=== PATIENT | female | born 1995 | race Two or more races ===

== ENCOUNTER 2024-01-26 18:02 | Emergency (ER) | payer OTHER, SELFPAY ==
[2024-01-26 18:07] VITALS: BP 108/80
--- NOTE | 2024-01-26 18:32 | ED.SKININJ ---
HPI-Injury
General
Chief Complaint: Skin Surface Trauma
Source: patient
Exam Limitations: none
Time Seen by Provider: 01/26/24 18:09
Nursing documentation reviewed up to this point in time: agreed with
History of Present Illness-Injury
Is this injury a work related problem?: No
Is pt an associate of [facility]/[place]?: No
Initial Injury comments:
Accidentally cut thumb with scissors. Incident occurred just [employer]
Past History
Past History
ED Past Medical History: None
Review of Systems
Review of Systems
Allergies reviewed?: Yes
All Other Systems: ROS reviewed and negative except as documented in HPI and ROS
Constitutional: Reports no symptoms
Musculoskeletal: Reports no symptoms
Skin: Reports other (Laceration dorsum of right thumb)
Neurological: Reports no symptoms
Psychiatric: Reports no symptoms
Skin Exam
Laceration
Right Dorsal Thumb:
Length in cm: 1.5
Orientation: diagonal
Type of Laceration: simple
Any active bleeding?: no active bleeding
Distal skin color and temperature: normal-warm & good color
Normal distal neurovascular exam: Yes
Range of motion: full
Phy Exam
General Physical Exam
General Presentation: well appearing and no apparent distress
General age: appears stated age
General Skin: warm and dry
General Habitus: normal
Musculoskeletal Exam
Musculoskeletal Exam: full ROM and neuro vasc intact
Skin Exam
Skin Exam: normal color, warm/dry and no rash
Psychiatric Exam
Psychiatric Exam: normal mood/affect
Course
Vital Signs
Initial and Last Documented VS:
Initial Vital Signs
Temp Pulse Resp BP Pulse Ox
98.2 F 74 18 108/80 98
01/26/24 18:07 01/26/24 18:07 01/26/24 18:07 01/26/24 18:07 01/26/24 18:07
Last Documented Vital Signs
Temp Pulse Resp BP Pulse Ox
98.2 F 74 18 108/80 98
01/26/24 18:07 01/26/24 18:07 01/26/24 18:07 01/26/24 18:07 01/26/24 18:07
Procedures
Laceration Closure
Right Dorsal Thumb:
Status of Wound: clean
Description of Wound Edges: sharp
Preparation: cleaned with saline and cleaned with Betadine
Anesthesia: 1% Lidocaine
Revision/Debridement: routine- no revision and irrigate-direct pressure
Wound exploration: explored to base- no FB and no tendon involvement
Type of Closure: single layer closure
Skin Closure Material: 5-0 prolene
*Critical Care Note
Total Time (30-74mins, 75-104mins- exclusive of procedures): Not Applicable
ED Attending Note
-
Portions of this chart may have been created with voice recognition software.� Occasional wrong word or��sound alike� substitutions may have occurred due to the inherent limitations of voice recognition software.
Discharge Plan
Departure
Patient Disposition: Home (Routine Discharge)
Date of Disposition: 01/26/24
Time of Disposition: 18:31
Patient with high blood pressure during this ER visit?: No
Condition: Good
Covid-19: Not Applicable
Discharge Problem:
Laceration of thumb
Instructions: Laceration Repair With Stitches (DC)
Prescriptions:
No Action
tramadol 50 mg tablet
50 mg PO Q8H PRN (Reason: Pain) Qty: 14 0RF
Activity Restrictions/Additional Instructions:
Sutures can be removed in 7-10 days by your family doctor.
Interventions
Interventions:
*Risk Screen - Suicide Last Done: 01/26/24 18:07
*Neglect/Abuse Screening Last Done: 01/26/24 18:07
Discharge Date and Time
Print Language: SURINAMESE
== END 2024-01-26 18:41 | disposition home or self-care (01) ==
LOC: EMR 18:02
PROVIDERS: EMERGENCY PHYSICIAN Emergency Medicine; FAMILY PHYSICIAN Nurse Practitioner Family
DX: S61.011A Laceration without foreign body of right thumb without damage to nail, initial encounter (principal); W27.2XXA Contact with scissors, initial encounter
CPT/HCPCS: 99282; 12001

== ENCOUNTER 2024-09-04 05:14 | Emergency (ER) | payer BC, SELFPAY ==
[2024-09-04 05:26] VITALS: BP 104/80
[2024-09-04 05:47] VITALS: BMI 27.7
[2024-09-04] MEDS: NSS 1000 IV (05:56)
[2024-09-04 05:58] LABS: Hematocrit 40.3 % (37.0-47.0); Hemoglobin 13.9 g/dL (12.0-16.0); Mean Corp Hgb Conc. 34.5 g/dL (33.0-37.0); Mean Corpuscular Volume 90.8 fL (81.0-99.0); Nucleated Red Blood Cells % 0 %; Platelet Count 282 10^3/uL (130-400); Red Cell Dist. Width 12.3 % (11.5-14.5)
[2024-09-04] MEDS: MORPHINE SULFATE 4 MG IV (05:58)
[2024-09-04] MEDS: ZOFRAN 4 MG IV ×2 (06:00→09:22)
--- NOTE | 2024-09-04 06:19 | ED.GENMED ---
History of Present Illness
<Carson Younger MD, Resident - Last Filed: 09/04/24 10:57>
General
Chief Complaint: Abdominal Pain
Source: patient
Exam Limitations: none
Time Seen by Provider: 09/04/24 06:11
Nursing documentation reviewed up to this point in time: agreed with
History of Present Illness
History of Present Illness:
This is a 28-year-old female with no significant past medical history, no prescription medications, presented in the emergency department with complaints of abdominal pain, nausea, vomiting and diarrhea. She reports that she was in her usual state
of health until around 11 PM last night when she noticed crampy abdominal pain which turned into a sharp 10/10 pain which continued to worsen and reportedly comes in waves and she had 2 episodes of watery stools, denies blood in stools and also 2
episodes of vomiting, denies blood in the vomit, reports it was mostly the food content that she ate at the dinner. Abdominal pain initially started in the middle however later moved to the right lower abdomen. Pain increases with any movements,
no relieving factors. Denies any fever or chills, trouble breathing, chest pain, headache, cough or weakness. Denies any recent sick contacts. Denies any recent travel. Denies any previous similar episode. Denies any surgeries on the abdomen.
Past History
<Carson Younger MD, Resident - Last Filed: 09/04/24 10:57>
Past History
ED Past Medical History: None
ED Past Surgical History: None
Patient has exhibited threatening behavior?: No
Social History
Tobacco: Non-smoker
Alcohol: Occasional
Drug: None
Family History
Family History: Other (Noncontributory)
Review of Systems
<Carson Younger MD, Resident - Last Filed: 09/04/24 10:57>
Review of Systems
Constitutional: Denies fever or chills
EENT: Denies sore throat
Respiratory: Denies cough
Cardiac: Denies chest pain
ABD/GI: Reports abdominal pain, nausea, vomiting and diarrhea; Denies bloody stools or black stools
: Denies dysuria, frequency or difficulty voiding
Musculoskeletal: Denies joint pain or muscle stiffness
Skin: Denies itching or rash
Neurological: Denies dizzy or headache
Hematologic/Lymphatic: Denies bleeding
Phy Exam
<Carson Younger MD, Resident - Last Filed: 09/04/24 10:57>
General Physical Exam
General Presentation: mild distress
General age: appears stated age
General Skin: warm
General Habitus: normal
General Mental: alert
Cardiovascular Exam
Cardiovascular Exam: regular rate/rhythm and no murmur
Pulmonary Exam
Pulmonary Exam: lungs clear, no respiratory distress and no cough
Gastrointestinal Exam
Gastrointestinal Exam: normal bowel sounds, soft, guarding, rebound and tender (Epigastric and right lower quadrant)
Musculoskeletal Exam
Musculoskeletal Exam: full ROM
Course
<Carson Younger MD, Resident - Last Filed: 09/04/24 10:57>
Orders/Labs/Results
Orders:
Orders
09/04/24 05:44
IV Insert/Care/Rem.- Treatment PRN
Test Result ONCE
09/04/24 05:50
Complete Blood Count/With Diff Urgent
Comprehensive Metabolic Panel Urgent
HCG, Serum Qualitative Screen Urgent
Comment: Notify provider if positive test present
Lipase Urgent
09/04/24 05:52
Morphine Sulfate 4 mg IV NOW STA
09/04/24 05:53
Ondansetron Injectable [Zofran] 4 mg IV NOW STA
09/04/24 05:55
0.9% Sodium Chloride 1000 ml [Nss] 1,000 ml IV BOLUS
09/04/24 06:26
Ketorolac [Toradol] 15 mg IV NOW STA
Pantoprazole [Protonix IV] 40 mg IV NOW STA
09/04/24 06:38
US Abdomen Complete/Upper Urgent
Comment:
Reason For Exam: upper abdominal pain
09/04/24 07:27
CT Abd/pel W Iv And Oral Contr Urgent
Comment:
Reason For Exam: lower adominal pain
Iohexol [Omnipaque] See Protocol PO NOW STA
09/04/24 07:43
Urinalysis Reflex To Culture Urgent
Date Specimen was Collected: 09/04/24
Time Specimen was Collected: 07:39
09/04/24 09:12
Ondansetron Injectable [Zofran] 4 mg IV NOW STA
09/04/24 09:30
Acetaminophen [Tylenol] 650 mg PO NOW STA
09/04/24 10:43
Acetaminophen [Tylenol] 650 mg PO NOW STA
Dicyclomine [Bentyl] 10 mg PO NOW STA
Abnormal Lab Results
09/04/24
05:50
WBC 13.3 H 10^3/uL
(4.8-10.8)
MCH 31.3 H pg
(27.0-31.0)
MPV 10.5 H fL
(7.4-10.4)
Absolute Neuts (auto) 11.1 H 10^3/uL
(1.4-6.5)
Absolute Lymphs (auto) 1.1 L 10^3/uL
(1.2-3.4)
Absolute Monos (auto) 0.8 H 10^3/uL
(0.1-0.6)
Neutrophils % 83.5 H %
(42.2-75.2)
Lymphocytes % 7.9 L %
(20.5-51.1)
Chloride 109 H mmol/L
(98-107)
Carbon Dioxide 21 L mmol/L
(22-30)
Glucose 123 H mg/dl
(70-99)
09/04/24 05:50
09/04/24 05:50
Vital Signs
Initial and Last Documented VS:
Initial Vital Signs
Temp Pulse Resp BP Pulse Ox
99.1 F 88 24 104/80 100
09/04/24 05:26 09/04/24 05:26 09/04/24 05:26 09/04/24 05:26 09/04/24 05:26
Last Documented Vital Signs
Temp Pulse Resp BP Pulse Ox
101.8 F H 88 24 104/80 100
09/04/24 09:26 09/04/24 05:26 09/04/24 05:26 09/04/24 05:26 09/04/24 06:21
<Michael Sullivan MD - Last Filed: 09/04/24 10:45>
Orders/Labs/Results
Orders:
Orders
09/04/24 05:44
IV Insert/Care/Rem.- Treatment PRN
Test Result ONCE
09/04/24 05:50
Complete Blood Count/With Diff Urgent
Comprehensive Metabolic Panel Urgent
HCG, Serum Qualitative Screen Urgent
Comment: Notify provider if positive test present
Lipase Urgent
09/04/24 05:52
Morphine Sulfate 4 mg IV NOW STA
09/04/24 05:53
Ondansetron Injectable [Zofran] 4 mg IV NOW STA
09/04/24 05:55
0.9% Sodium Chloride 1000 ml [Nss] 1,000 ml IV BOLUS
09/04/24 06:26
Ketorolac [Toradol] 15 mg IV NOW STA
Pantoprazole [Protonix IV] 40 mg IV NOW STA
09/04/24 06:38
US Abdomen Complete/Upper Urgent
Comment:
Reason For Exam: upper abdominal pain
09/04/24 07:27
CT Abd/pel W Iv And Oral Contr Urgent
Comment:
Reason For Exam: lower adominal pain
Iohexol [Omnipaque] See Protocol PO NOW STA
09/04/24 07:43
Urinalysis Reflex To Culture Urgent
Date Specimen was Collected: 09/04/24
Time Specimen was Collected: 07:39
09/04/24 09:12
Ondansetron Injectable [Zofran] 4 mg IV NOW STA
09/04/24 09:30
Acetaminophen [Tylenol] 650 mg PO NOW STA
09/04/24 10:43
Acetaminophen [Tylenol] 650 mg PO NOW STA
Dicyclomine [Bentyl] 10 mg PO NOW STA
Abnormal Lab Results
09/04/24
05:50
WBC 13.3 H 10^3/uL
(4.8-10.8)
MCH 31.3 H pg
(27.0-31.0)
MPV 10.5 H fL
(7.4-10.4)
Absolute Neuts (auto) 11.1 H 10^3/uL
(1.4-6.5)
Absolute Lymphs (auto) 1.1 L 10^3/uL
(1.2-3.4)
Absolute Monos (auto) 0.8 H 10^3/uL
(0.1-0.6)
Neutrophils % 83.5 H %
(42.2-75.2)
Lymphocytes % 7.9 L %
(20.5-51.1)
Chloride 109 H mmol/L
(98-107)
Carbon Dioxide 21 L mmol/L
(22-30)
Glucose 123 H mg/dl
(70-99)
09/04/24 05:50
09/04/24 05:50
Vital Signs
Initial and Last Documented VS:
Initial Vital Signs
Temp Pulse Resp BP Pulse Ox
99.1 F 88 24 104/80 100
09/04/24 05:26 09/04/24 05:26 09/04/24 05:26 09/04/24 05:26 09/04/24 05:26
Last Documented Vital Signs
Temp Pulse Resp BP Pulse Ox
101.8 F H 88 24 104/80 100
09/04/24 09:26 09/04/24 05:26 09/04/24 05:26 09/04/24 05:26 09/04/24 06:21
<Carson Younger MD, Resident - Last Filed: 09/04/24 10:57>
MDM/Problems Addressed
Differential Diagnosis Includes:
Appendicitis vs biliary colic vs renal colic, less likely pancreatitis vs viral gastritis vs colitis
MDM/Problems Addressed:
Complete blood count with leukocytosis of 13.3. Beta-hCG negative
CMP and lipase pending.
Patient received formal 1 g IV, Zofran 4 mg IV, 1 L normal saline bolus which helped the pain to an extent.
Patient still very much in pain; will give 15 mg Toradol and 40 mg IV Protonix.
will get US abd
update:
CMP with slightly elevated blood glucose 123 and borderline elevated chloride 109. Lipase within normal limits.
Repeat physical exam showed epigastric and right lower quadrant abdominal pain. 09/06.
Abd usg shows: No evidence of cholelithiasis, gallbladder wall thickening or biliary tract dilatation. No signs of hydronephrosis, mass or calculi are seen in either kidney. No evidence of abdominal aortic aneurysm. The inferior vena cava is
unremarkable.
UA unremarkable. will check CT abd/pel with IV and oral contrast. Patient could not tolerate oral contrast and had an episode of nonbloody vomiting. Will give another dose of Zofran and get CT abdomen/pelvis with IV contrast only.
Patient continues to have 7 abdominal pain. We have offered pain medication while awaiting the CT however patient refused and states that she can tolerate this pain. Given temp of 101.8, will give acetaminophen [address]: highly suggestive of enteritis. There is edema within the adjacent mesentery. Small to moderate amount of free fluid within the pelvic cul-de-sac.
No evidence for bowel obstruction or free intraperitoneal air.
The appendix appears normal.
2.9 cm ovoid cystic focus in the right adnexal region, possibly a small right ovarian follicular cyst. This could also represent a nonopacified loop of small bowel.
Will give her 1 dose of Bentyl nephro. Shared decision with the patient to discharge home. Will send Tylenol Bentyl prescription to the pharmacy. Patient agreeable. Advised that it might take another couple of days before she feels better. I
will provide the work note to the patient as well. Advised that if she experience any worsening of the symptoms or her symptoms persist for more than a couple of days or she develops any new symptoms she should come back to the hospital. She
voices understand
<Carson Younger MD, Resident - Last Filed: 09/04/24 10:57>
*Pulse Oximetry
SaO2: 100
Patient hypoxic: no
*Critical Care Note
Total Time (30-74mins, 75-104mins- exclusive of procedures): Not Applicable
ED Attending Note
<Carson Younger MD, Resident - Last Filed: 09/04/24 10:57>
-
Portions of this chart may have been created with voice recognition software.� Occasional wrong word or��sound alike� substitutions may have occurred due to the inherent limitations of voice recognition software.
<Michael Sullivan MD - Last Filed: 09/04/24 10:45>
ED Attending Note
Patient seen and examined by attending physician: Yes
ED Attending Note:
Patient presents to ED secondary to persistent nausea, vomiting, and diarrhea, along with abdominal cramping sensation since 11 PM last night. Patient reports having had steak for dinner, which was shared with her family member, and approximately 2
hours prior to onset of symptoms. Denies fever or chills. Denies trauma. Denies back pain. Denies recent change in medications or diet. No recent travel. Denies sick contact. Denies previous history of similar symptoms.
Physical Exam
General: mild painful distress, appears uncomfortable. afebrile.
Head: nc/at. eomi
Neck: supple. no meningeal signs.
Heart: s1/s2 regular rate and rhythm.
Lungs: no acute respiratory distress. clear bilaterally
Abdomen: normal bowel sounds. no distention. mild periumbilical/lower abdominal tenderness to palpation
Neuro: alert and oriented x 3. no focal neurological deficits
Skin: no rash
Psychiatric: well kept. interactive and cooperative
Extremities: no edema. no calf tenderness.
In light of patient's persistent symptoms despite treatment, decision made to obtain CT abdomen pelvis to evaluate for potential appendicitis.
CT report reviewed and discussed with patient. History and exam, along with CT scan consistent with likely nonspecific viral enteritis. Patient otherwise remains hemodynamically stable during observation. Patient will be discharged home in stable
condition, to the care of her family, with recommendation for symptomatic treatment at home, including nausea medication along with continual hydration. Advised PCP follow-up as an outpatient, or return to ED with persistent or worsening symptoms.
Discharge Plan
Departure
Patient Disposition: Home (Routine Discharge)
Date of Disposition: 09/04/24
Time of Disposition: 10:48
Patient with high blood pressure during this ER visit?: No
Condition: Fair
Discharge Problem:
Enteritis
Instructions: Viral gastroenteritis in adults, [place] diet
Prescriptions:
New
ondansetron 4 mg tablet,disintegrating
4 mg PO Q8H PRN (Reason: nausea and vomiting) Qty: 12 0RF
dicyclomine 10 mg capsule
10 mg PO BID PRN (Reason: abdominal pain) Qty: 8 0RF
Referrals:
Vasiliy Nugent MD [Family Provider, [facility]] - Follow up in 1 week
Stand Alone Forms: Return to Work
Activity Restrictions/Additional Instructions:
You were seen in the emergency department today with concerns of abdominal pain while you were here we performed blood tests including CBC which showed mild elevation of white blood cell count. Complete metabolic panel which showed slight elevation
of blood glucose. Lipase which was normal. Abdominal ultrasound: No evidence of cholelithiasis, gallbladder wall thickening or biliary tract dilatation. No signs of hydronephrosis, mass or calculi are seen in either kidney. No evidence of
abdominal aortic aneurysm. The inferior vena cava is unremarkable. Urinalysis which was unremarkable. CT: highly suggestive of enteritis. There is edema within the adjacent mesentery. Small to moderate amount of free fluid within the pelvic
cul-de-sac.
No evidence for bowel obstruction or free intraperitoneal air.
The appendix appears normal.
2.9 cm ovoid cystic focus in the right adnexal region, possibly a small right ovarian follicular cyst. This could also represent a nonopacified loop of small bowel.
During your stay in the emergency department you received Zofran, normal saline bolus 1 L, IV Toradol for pain, IV Protonix, and 2 mg of IV morphine and 1 dose of Bentyl. A prescription for Bentyl and Zofran sent to your pharmacy. Please utilize
[id number] omeprazole 20 mg to reduce acid reflux. You can also use Tylenol with maximum dose of 3000 mg/day.
Your symptoms are most likely related to viral gastroenteritis. Instructions attached. Symptoms are expected to improve in couple of days. If you develop any new symptoms, worsening of current symptoms or symptoms persist for more than couple of
days you should return to the ER.
Interventions
Interventions:
*Risk Screen - Suicide Last Done: 09/04/24 05:26
*General Assessment Last Done: 09/04/24 05:45
*Neglect/Abuse Screening Last Done: 09/04/24 05:26
*ED- Fall Risk Assessment Last Done: 09/04/24 05:45
*ED COVID-19 Vaccine History Last Done: 09/04/24 05:45
NT-Puudke-Rjmyxezmhl Assessment Last Done: 09/04/24 06:14
Discharge Date and Time
Print Language: [place]
[2024-09-04 06:20] LABS: HCG, Serum Qualitative Screen Negative
[2024-09-04 06:29] LABS: ALT (SGPT) 15 U/L (0-35); AST (SGOT) 21 U/L (14-36); Albumin 4.4 g/dl (3.5-5.0); Alkaline Phosphatase 44 U/L (38-126); Blood Urea Nitrogen 12 mg/dl (7-17); Calcium 9.7 mg/dl (8.4-10.2); Carbon Dioxide 21 mmol/L (22-30); Chloride 109 mmol/L (98-107); Estimated Creatinine Clearance > 125 ml/min; Glucose 123 mg/dl (70-99); Lipase 111 U/L (23-300); Potassium 3.9 mmol/L (3.5-5.1); Sodium 137 mmol/L (135-145); Total Protein 7.2 g/dl (6.3-8.2); eGFR > 60.00
[2024-09-04] MEDS: TORADOL 15 MG IV (06:40)
[2024-09-04] MEDS: PROTONIX IV 40 MG IV (06:41)
[2024-09-04] MEDS: OMNIPAQUE 50 ML PO (07:40)
[2024-09-04 07:54] LABS: Urine Character Clear (Clear)
[2024-09-04] MEDS: TYLENOL 650 MG PO (10:00)
[2024-09-04] MEDS: BENTYL 10 MG PO (10:50)
== END 2024-09-04 11:22 | disposition home or self-care (01) ==
LOC: EMR 05:14
PROVIDERS: Student in an Organized Health Care Education/Training Program; EMERGENCY PHYSICIAN Emergency Medicine; FAMILY PHYSICIAN Family Medicine
DX: K52.9 Noninfective gastroenteritis and colitis, unspecified (principal)
CPT/HCPCS: 99284; 96374; 96375; 96376; 96361; 74177; 76700; 80053; 81003; 83690; 84703; 85025; Q9967

== ENCOUNTER → 2025-01-15 09:36 | Outpatient (REF) | payer BC, SELFPAY | LOC: RAD 09:36 | PROVIDERS: ATTENDING PHYSICIAN Internal Medicine Gastroenterology | DX: R10.31 Right lower quadrant pain (principal) | CPT/HCPCS: 74019 ==